=== PATIENT | female | born 1970 | race Caucasian/White ===

== ENCOUNTER 2017-11-01 18:14 | Emergency (ER) | payer BC ==
[~2017-11-01] VITALS: Ht 157.5 cm; Wt 92.6 kg
[2017-11-01 18:56] LABS: HEMATOCRIT 39.2 % (36.0-46.0); HEMOGLOBIN 13.2 G/DL (11.9-15.5); MCH 27.3 PG (29.0-34.0); MCHC 33.7 G/DL (30.0-36.0); MCV 81.2 FL (83-99); PLATELET COUNT 188 K/uL (156-360); RBC DIS.WIDTH-CV 13.1 % (11.8-14.6); RBC DIS.WIDTH-SD 38.1 % (39-53); RED BLOOD COUNT 4.83 M/uL (3.80-5.20); WHITE BLOOD COUNT 6.9 K/uL (4.1-10.2)
[2017-11-01 19:13] LABS: CHLORIDE 108 mEq/L (99-109); POTASSIUM 3.4 mEq/L (3.7-5.4); SODIUM 140 mEq/L (136-147)
[2017-11-01 19:15] LABS: GLUCOSE 106 mg/dL (70-99)
[2017-11-01 19:18] LABS: CREATININE 1.1 mg/dL (0.6-1.3); GFR ESTIMATE (CALCULATED) 57 mL/min/
[2017-11-01 19:19] LABS: UREA NITROGEN (BUN) 11 mg/dL (9-23)
[2017-11-01] MEDS ORDERED: KEFLEX500 MG PO (19:46)
[2017-11-01 20:05] VITALS: BP 146/90
== END 2017-11-01 20:05 | disposition home or self-care (01) ==
LOC: EME 18:14
PROVIDERS: Physician Assistant
PROC: 0H9FXZZ Drainage of Right Hand Skin, External Approach (ICD-10-PCS; principal; 2017-11-01)
DX: B00.89 Other herpesviral infection (principal); M79.89 Other specified soft tissue disorders
CPT/HCPCS: 73140; 80048; 85027; 99281; 99283